=== PATIENT | female | born 1965 | race Caucasian/White ===

== ENCOUNTER → 2018-08-08 | Outpatient (CLI) | payer BC ==
--- NOTE | 2018-08-08 16:11 | US ---
EXAMINATION TYPE: US abdomen limited DATE OF EXAM: 08/08/2018 COMPARISON: NONE CLINICAL HISTORY: I80.0 Thrombophlebitis. Patient can feel a palpable "string like" area down her rig ht flank. Unable to visualize any abnormality at the patient's area of palpable. IMPRESSION: #1 subcutaneous tissues through the right flank region appear unremarkable.
== END | disposition home or self-care (01) ==
LOC: RADUSWWP 08:42
PROVIDERS: ATTEND Family Medicine
DX: I80.8 Phlebitis and thrombophlebitis of other sites (principal)
CPT/HCPCS: 76705